=== PATIENT | male | born 1955 | race Caucasian/White ===

== ENCOUNTER 2017-03-11 12:20 | Day surgery (SDC) | payer MEDICARE ==
[2017-03-10 12:56] LABS: HEMATOCRIT 42.3 % (40.0-51.0)
[2017-03-10 13:24] LABS: BUN (BLOOD UREA NITROGEN) 6 MG/DL (6-23); CALCIUM, SERUM 9.3 MG/DL (8.5-10.4); CHLORIDE, SERUM 94 MMOL/L (96-112); CREATININE 0.89 MG/DL (0.70-1.30); GFR AFRICAN AMERICAN 105 ML/MIN (>=60); GFR NON AFRICAN AMERICAN 91 ML/MIN (>=60); GLUCOSE, SERUM 101 MG/DL (60-99); SODIUM, SERUM 128 MMOL/L (135-148)
[2017-03-10 13:32] LABS: CO2 (CARBON DIOXIDE) 23 MMOL/L (24-34); POTASSIUM, SERUM 4.6 MMOL/L (3.5-5.3)
--- NOTE | ~2017-03-11 | OP ---
Record Of Operation [facility] [address] [place]. [address] NAME: JUNE FREY : 51 STATUS : [facility]#: [id number] AGE: 61 ADM/REG DATE : 03/11/17 MR#: [id number] REPORT SERV DATE: 03/11/17 DICTATED BY: MARVIN CHOI III DATE: 03/11/17 REPORT STATUS : Draft TRANSCRIBED BY: MODL DATE: 03/11/17 DATE OF PROCEDURE: 03/11/2017 PREOPERATIVE DIAGNOSIS: Urethral stricture disease. POSTOPERATIVE DIAGNOSIS: Urethral stricture disease. PROCEDURE: Cystoscopy, urethral dilation with catheter placement. ANESTHESIA: General. SPECIMENS: None. DRAINS: An 18-Syrian Coude catheter. INDICATION: Mr. Frey is a 61-year-old white male with a history of urinary retention, requiring Kowalski catheterization. He has been dilated in the past for urethral stricture disease. Consent is obtained for the above procedure. DESCRIPTION OF PROCEDURE: After the consent was obtained and the patient was identified, he was taken to the OR and put to sleep. He was positioned in the low lithotomy position and prepped and draped in usual fashion. The 22-Syrian cystoscope was inserted into the urethra and passed along the course of urethra into the bladder on direct vision. There was a fairly wide caliber stricture in the bulbar urethra just distal to the external sphincter. I was able to pass the 20-Syrian cystoscope through. The bladder was then inspected. There were no tumors, stones, or foreign bodies. Pictures were obtained of the prostatic urethra as well as ureteral orifices and they appeared normal. The bladder was left full and the scope was removed. The Andi sounds were used to dilate through a 32-Syrian and 18- Syrian Coude tip catheter was then inserted and the balloon was inflated to 10 mL. This was hooked up to gravity drainage. The patient was awakened and taken to recovery in stable condition. PH/MODL Marvin Choi III, M.D. / [id number] CC: Selma Rivera IIIlooy, M.D.
[~2017-03-11 12:20] MED LIST: ART2 PO; CYANO1000T PO; FLOMAX4 PO; HALOPERIDOL20 MG PO; KLONO5 PO; KLOR-CON 1010 MEQ PO; LOTENSIN HCT1 TA3 PO; PRILO PO; PROZAC40 MG PO; UROXATRAL PO; ZYPREXA10 MG PO
== END 2017-03-11 16:35 | disposition home or self-care (01) ==
LOC: SDC 12:20
PROVIDERS: Urology
PROC: 0T7D8DZ Dilation of Urethra with Intraluminal Device, Via Natural or Artificial Opening Endoscopic (ICD-10-PCS; principal; 2017-03-11 15:00)
DX: N35.9 Urethral stricture, unspecified (principal); I10 Essential (primary) hypertension; F32.9 Major depressive disorder, single episode, unspecified; K21.9 Gastro-esophageal reflux disease without esophagitis; F41.9 Anxiety disorder, unspecified; N40.0 Benign prostatic hyperplasia without lower urinary tract symptoms; Z79.899 Other long term (current) drug therapy; Z98.890 Other specified postprocedural states
CPT/HCPCS: 80048; 84295; 85014; 85018; 93005; A9270-GY; J2250; J2405; J3010